=== PATIENT | female | born 1945 | race Caucasian/White ===

== ENCOUNTER → 2017-12-04 10:59 | Outpatient (CLI) | payer MEDICARE, SELFPAY ==
--- NOTE | 2017-12-04 11:03 | MM_ITS ---
MM Dig screening mamm BI w/CAD CAD Screening ORDERING PHYSICIAN : Kaya Lopez PATIENT AGE: 72 years GENDER: Female INDICATION: A routine mammogram. Patient with no hormones no new complaints. Noncontributory family history. COMPARISON: Previous mammograms: November & 2013 TECHNIQUE: Standard CC and MLO images were obtained. R2 CAD reviewed. FINDINGS: Mild to moderate residual glandular tissue bilaterally no dominant mass nor suspicious calcifications RIGHT BREAST:. No significant new areas of concern. . Benign vascular calcifications bilaterally LEFT BREAST:No new areas of significant concern. Small bilobed benign calcification with minimal associated density in region of upper-outer quadrant left breast is a long standing stable feature. IMPRESSION: .... Stable bilateral mammogram. N No significant new findings.. Follow-up in one year BI-RADS Category: 1 Negative RECOMMENDED FOLLOW-UP: 1YR - 1 YEAR FOLLOW-UP (A letter has been sent to the patient regarding results of the study.)
== END ==
PROVIDERS: Family Provider Internal Medicine; PCP Obstetrics & Gynecology Gynecology; Visit Provider Obstetrics & Gynecology Gynecology
DX: Z12.31 Encounter for screening mammogram for malignant neoplasm of breast (principal)
CPT/HCPCS: 77067

== ENCOUNTER → 2019-06-09 10:29 | Outpatient (CLI) | payer MEDICARE, SELFPAY ==
--- NOTE | 2019-06-09 10:33 | MM_ITS ---
PROCEDURE: MM DIG SCREENING MAMM BI W/CAD CLINICAL INDICATION: SCREENING There is no personal or family history of breast cancer COMPARISON: [facility] DIG MAMM-SCREEN [facility] from 06/07/2015 [facility] DIG MAMM-SCREEN [place] W/CAD from 11/28/2016 [facility] MM Dig screening mamm BI w/CAD from 12/04/2017 TECHNIQUE: Standard CC and MLO images were obtained. R2 CAD reviewed. FINDINGS: Moderate diffuse scattered fibroglandular densities are seen throughout both breast and the findings of bilateral and symmetrical. There is mild arterial calcification in each breast. There are few scattered benign-appearing microcalcifications in each breast. There is no suspicious lesion and no suspicious microcalcifications. IMPRESSION: Moderate diffuse breast density with no suspicious lesions seen BI-RAD Category: 2 Benign Finding(s) FOLLOW-UP: 1YR 1 Year Follow-up (A letter has been sent to the patient regarding results of the study.) Dictated by: Dr. Darryl Rust MD 06/10/2019 15:[address] Darryl Rust MD in [place] 06/10/2019 15:03
== END ==
PROVIDERS: Visit Provider Obstetrics & Gynecology Gynecology
DX: Z12.31 Encounter for screening mammogram for malignant neoplasm of breast (principal)
CPT/HCPCS: 77067

== ENCOUNTER → 2020-06-21 10:54 | Outpatient (CLI) | payer MEDICARE, SELFPAY ==
--- NOTE | 2020-06-21 10:58 | MM_ITS ---
PROCEDURE: MM DIG SCREENING MAMM BI W/CAD Referring Doctor: Kaya Lopez Patient Age:74Y CLINICAL INDICATION: SCREENING 74-year-old. No hormones, no new complaints. Noncontributory family history The the the the COMPARISON: MG [facility] DIG MAMM-SCREEN [place] from 05/19/2013 MG [facility] DIG MAMM-SCREEN [place] from 06/02/2014 MG [facility] DIG MAMM-SCREEN [place] from 06/07/2015 MG [facility] MAMM-SCREEN [place] W/CAD from 11/28/2016 MG [facility] MM Dig screening mamm BI w/CAD from 12/04/2017 MG MM DIG SCREENING MAMM BI W/CAD from 06/09/2019 TECHNIQUE: Standard CC and MLO images were obtained. R2 CAD reviewed. Bilateral digital breast tomosynthesis included. Additional nipple profile left MLO view left breast FINDINGS: A nkvk-di-nwknkose residual fibroglandular elements most evident at the central and upper outer quadrant both breast . Similar overall architecture with either breast no suspicious calcification. Arterial vascular calcifications bilaterally Left breast. CAD and visual inspection note a small area of density at the medial left breast on both the CC and cc tomosynthesis views which appears slightly denser than previous studies. However this is less evident on the MLO image sequences.. I doubt this is of significance and most likely accentuated by technique today but since this minimal density has become more evident since prior studies since prior cc views would suggest would suggest patient return for ultrasound left breast of followed by spot cc and MLO views, and full 90 degree view left breast. Right breast: No new areas of concern on the right. No dominant nor suspicious mass.. IMPRESSION: Left breast Small focus density at medial left breast has become slightly more evident on today's CC and cc tomosynthesis view. This may merely be due to differences in technique and overlapping shadows, but would recommend Ultrasound And Additional ViewsLeft Breast to further evaluate Right Breast stable with no significant appearing new findings but findings. Follow-up in 1 year on right BI-RAD Category: 0 Need Additional Imaging Evaluation FOLLOW-UP: IMM Immediate Follow-up Recommended Left breast ultrasound and spot views (A letter has been sent to the patient regarding results of the study.) Dictated by: Perez Singh MD 06/23/2020 12:07 Perez Singh MD in [place] 06/23/2020 12:07
== END ==
PROVIDERS: PCP Internal Medicine; Visit Provider Obstetrics & Gynecology Gynecology
DX: Z12.31 Encounter for screening mammogram for malignant neoplasm of breast (principal)
CPT/HCPCS: 77063; 77067

== ENCOUNTER → 2020-07-05 13:11 | Outpatient (CLI) | payer MEDICARE, SELFPAY ==
--- NOTE | 2020-07-05 13:15 | MM_ITS ---
PROCEDURE: MM DIG MAMM DX UNILAT LT CAD Digital Breast Tomosynthesis Included CLINICAL INDICATION: ABN MAMM COMPARISON: MG [facility] MM Dig screening mamm BI w/CAD from 12/04/2017 MG MM DIG SCREENING MAMM BI W/CAD from 06/09/2019 MG MM DIG SCREENING MAMM BI W/CAD from 06/21/2020 US US BREAST LT COMPLETE from 07/05/2020 TECHNIQUE: Standard CC and MLO images and 3D Tomosynthesis was obtained. R2 CAD reviewed. FINDINGS: Subtle and questionable nodular density near the nipple left breast seen on the recent exam appears to press out on the spot MLO and CC views. Again noted is arterial calcification and a couple of benign-appearing microcalcifications. Ultrasound performed the same date showed a small oval 8 x 7 mm hypoechoic lesion with internal echoes and this likely is a small cyst with internal debris and certainly has no suspicious characteristics. IMPRESSION: Essentially negative problem solving views and recommend the patient continue with yearly screening mammography BI-RAD Category: 1 Negative FOLLOW-UP: 1YR 1 Year Follow-up (A letter has been sent to the patient regarding results of the study.) Dictated by: Dr. Darryl Rust MD 07/07/2020 12:10 Dr. Darryl Rust MD in [place] 07/07/2020 12:10
--- NOTE | 2020-07-05 13:15 | US_ITS ---
PROCEDURE: US BREAST LT COMPLETE CLINICAL INDICATION: ABN MAMM COMPARISON: No exams were available for comparison FINDINGS: Somewhat diffuse heterogenic echogenicity is seen. There is a small oval hypoechoic lesion with well-defined borders and internal echoes at the 3 o'clock position near the nipple measuring 0.7 x 0.4 0.8 cm. This likely is a small complex cyst. There is no definite suspicious abnormality at this location on the mammogram performed the same date. There are normal appearing nodes in the axilla. IMPRESSION: Probable small complex cyst and suggest patient have follow-up ultrasound left breast in 1 year at the time of the yearly screening mammogram. Dictated by: Dr. Darryl Rust MD 07/07/2020 12:13 Dr. Darryl Rust MD in [place] 07/07/2020 12:13
== END ==
PROVIDERS: PCP Internal Medicine; Visit Provider Obstetrics & Gynecology Gynecology
DX: R92.8 Other abnormal and inconclusive findings on diagnostic imaging of breast (principal)
CPT/HCPCS: 76641; 77061; 77065; G0279

== ENCOUNTER → 2022-04-03 08:18 | Outpatient (CLI) | payer MEDICARE, SELFPAY ==
--- NOTE | 2022-04-03 08:22 | MM_ITS ---
PROCEDURE INFORMATION: Exam: MG Bilateral Screening 3D Mammography Exam date and time: 04/03/2022 8:16 AM Age: 76 years old Clinical indication: Screening examination. No family history of breast cancer. TECHNIQUE: Imaging protocol: Bilateral Screening tomosynthesis and 2D mammography including computer-aided detection (CAD) when performed. COMPARISON: 1. MG MM DIG MAMM DX UNILAT LT CAD 07/05/2020 1:21 PM 2. MG MM DIG SCREENING MAMM BI W/CAD 06/21/2020 10:57 AM 3. MG MM DIG SCREENING MAMM BI W/CAD 06/09/2019 10:41 AM 4. MG [facility] MM Dig screening mamm BI w/CAD 12/04/2017 11:18 AM FINDINGS: MAMMOGRAPHY: Breast composition: There are scattered areas of fibroglandular density. Mass: None. Architectural distortion: None. Calcifications: No suspicious calcifications. Asymmetric density: None. Skin thickening: None. Axillary adenopathy: None. IMPRESSION: No mammographic evidence of malignancy. Annual screening is recommended unless otherwise clinically indicated. ASSESSMENT: BI-RADS Category 1: Negative
== END ==
PROVIDERS: PCP Internal Medicine; Visit Provider Obstetrics & Gynecology Gynecology
DX: Z12.31 Encounter for screening mammogram for malignant neoplasm of breast (principal)
CPT/HCPCS: 77063; 77067

== ENCOUNTER → 2023-05-22 10:16 | Outpatient (CLI) | payer MEDICARE, SELFPAY ==
--- NOTE | 2023-05-22 10:20 | MM_ITS ---
PROCEDURE INFORMATION: Exam: MG Bilateral Screening 3D Mammography Exam date and time: 05/22/2023 10:17 AM Age: 77 years old Clinical indication: Screening mammogram TECHNIQUE: Imaging protocol: Bilateral Screening tomosynthesis and 2D mammography including computer-aided detection (CAD) when performed. COMPARISON: 1. MG MM DIG SCREENING MAMM BI W/CAD 04/03/2022 8:16 AM 2. MG MM DIG MAMM DX UNILAT LT CAD 07/05/2020 1:21 PM 3. MG MM DIG SCREENING MAMM BI W/CAD 06/21/2020 10:57 AM 4. MG MM DIG SCREENING MAMM BI W/CAD 06/09/2019 10:41 AM FINDINGS: MAMMOGRAPHY: Breast composition: The breast is heterogeneously dense, which may obscure small masses. Mass: None. Architectural distortion: No new or suspicious architectural distortion. Calcifications: Stable benign-appearing calcifications are present. No new or suspicious cluster of microcalcifications have developed. Asymmetric density: No new or suspicious asymmetric density is present Skin thickening: None. Axillary adenopathy: None. IMPRESSION: No mammographic evidence of malignancy. Recommend annual screening mammography unless otherwise clinically indicated. ASSESSMENT: BI-RADS category 2: Benign
== END ==
PROVIDERS: PCP Internal Medicine; Visit Provider Obstetrics & Gynecology Gynecology
DX: Z12.31 Encounter for screening mammogram for malignant neoplasm of breast (principal)
CPT/HCPCS: 77063; 77067

== ENCOUNTER 2024-01-10 10:39 | Emergency (ER) | payer MEDICARE, SELFPAY ==
[2024-01-10 11:10] VITALS: BP 143/66; PULSE 86; RESP 20; TEMP 36.8; O2SAT 94; BMI 28.8
--- NOTE | 2024-01-10 11:58 | ED_ITS ---
Discharge Plan Disposition Patient Disposition: Home, Self-Care Condition: Good Prescriptions Prescriptions: New ondansetron 4 mg tablet,disintegrating 4 mg PO Q8H 4 Days Qty: 12 0RF No Action atorvastatin 80 mg tablet 80 mg PO DAILY Patient Comments: TAKE 1 TABLET BY MOUTH DAILY trazodone 50 mg tablet 50 mg PO DAILY Patient Comments: TAKE 1 TO 2 TABLETS BY MOUTH EVERY EVENING sennosides-docusate sodium [Stimulant Laxative Plus] 8.6-50 mg tablet 1 tab PO HS Patient Comments: TAKE 1 TO 2 TABLETS BY MOUTH EVERY NIGHT AT BEDTIME amlodipine 5 mg tablet 5 mg PO DAILY Patient Comments: TAKE 1 TABLET BY MOUTH EVERY DAY hydrocodone-acetaminophen 10-325 mg tablet 1 tab PO BID Patient Comments: TAKE 1 TABLET BY MOUTH TWICE DAILY omeprazole 20 mg capsule,delayed release(DR/EC) 20 mg PO DAILY Patient Comments: TAKE 1 CAPSULE BY MOUTH EVERY DAY aspirin 81 mg Tablet,Chewable 81 mg PO DAILY atenolol 50 mg tablet 50 mg PO DAILY Patient Comments: TAKE 1 TABLET BY MOUTH DAILY nitrofurantoin monohyd/m-cryst 100 mg capsule 100 mg PO Q12H Patient Comments: TAKE 1 CAPSULE BY MOUTH EVERY 12 HOURS FOR 10 DAYS WITH FOOD/MEAL Referrals Follow up/Referrals: Jack Francisco [Primary Care Provider] - See instructions Activity Restrictions/Add. Instructions Additional Instructions/Restrictions: Follow up with PCP concerning results from culture. Increase fluids and rest. Call by by 7 pm from Flu/Covid results. If symptoms persist or worsen, return to clinic or PCP. Clinical Impressions Clinical Impression: Upper respiratory infection, viral Instructions Patient Instructions: DI for Urinary Tract Infection (UTI), DI for Viral Upper Respiratory Infection -- Adult Discharge ED Provider: Claudia Deal [facility] General Stated complaint: body aches, headaches, fever Mode of Arrival: Ambulatory Source of Information: Patient Limitations: No Limitations Time Seen by Provider: 01/10/24 11:46 Description of Symptoms (Recalled from Triage Doc. by RN): PATIENT C/O HEADACHE, BODY ACHES, AND COUGH X 4 DAYS HEENT Symptoms (Recalled from RN notes): Yes Resp Symptoms (Recalled from RN notes): Yes Skin Symptoms (Recalled from RN notes): No MS Symptoms (Recalled from RN notes): No Functional Status (Recalled from RN notes): WNL History of Present Illness Provider Complaint: Pt reports that she was seen by her PCP a couple of days ago and was treated with an antibiotic for an UTI. She states that the cultures have not come back but she has continued to feel worse with body aches, fever, headache, and a slight cough. She reports not being able to drink much as she has been nauseated. She wishes to rule out Covid and flu at this time. Related Data Home Medications Medication Instructions Recorded Confirmed amlodipine 5 mg tablet 5 mg PO DAILY 01/10/24 01/10/24 aspirin 81 mg chewable tablet 81 mg PO DAILY 01/10/24 01/10/24 atenolol 50 mg tablet 50 mg PO DAILY 01/10/24 01/10/24 atorvastatin 80 mg tablet 80 mg PO DAILY 01/10/24 01/10/24 hydrocodone 10 mg-acetaminophen 1 tab PO BID 01/10/24 01/10/24 325 mg tablet nitrofurantoin 100 mg PO Q12H 01/10/24 01/10/24 monohydrate/macrocrystals 100 mg capsule omeprazole 20 mg capsule,delayed 20 mg PO DAILY 01/10/24 01/10/24 release sennosides 8.6 mg-docusate sodium 1 tab PO HS 01/10/24 01/10/24 50 mg tablet (Stimulant Laxative Plus) trazodone 50 mg tablet 50 mg PO DAILY 01/10/24 01/10/24 Previous Rx's Medication Instructions Recorded ondansetron 4 mg disintegrating 4 mg PO Q8H 4 days #12 tabs 01/10/24 tablet Allergies Allergy/AdvReac Type Severity Reaction Status Date / Time morphine Allergy Verified 01/10/24 11:26 Sulfa (Sulfonamide Allergy Verified 01/10/24 11:26 Antibiotics) Worker's Comp Is this a Worker's Comp case?: No [facility] Disclaimer: The information contained in this section may have been updated after the meme ent was seen, as this information can be updated by other users. Medical History (Updated 01/10/24 @ 12:02 by Claudia Deal APRN) UTI (urinary tract infection) GERD (gastroesophageal reflux disease) Anxiety History of heart attack Hyperlipidemia Hypertension Surgical History (Updated 01/10/24 @ 11:26 by Shana Gonzalez RN) History of tonsillectomy History of cardiac cath Social History Smoking Status: Never smoker alcohol intake: never current occupational status: previously employed Travel in the last 8 weeks: None ROS Obtained: Yes All systems reviewed & no additional complaints except as documented Constitutional Constitutional: Reports system reviewed and no additional complaints, except as documented, Reports body ache, Reports chills, Reports headache(s) and Reports malaise Eyes Eyes: Reports system reviewed and no additional complaints, except as documented ENT Ears, Nose, Mouth, and Throat: Reports system reviewed and no additional com plaints, except as documented and Reports headache(s) Cardiovascular Cardiovascular: Reports system reviewed and no additional complaints, except as documented Respiratory Respiratory: Reports system reviewed and no additional complaints, except as documented and Reports cough Gastrointestinal Gastrointestingal: Reports system reviewed and no additional complaints, except as documented and nausea Genitourinary Female Genitourinary: Reports system reviewed and no additional complaints, except as documented, Reports dysuria and Reports urinary frequency Musculoskeletal Musculoskeletal: Reports system reviewed and no additional complaints, except as documented Integumentary/Breasts Skin/Breast: Reports system reviewed and no additional complaints, except as documented Neurologic Neurologic: Reports system reviewed and no additional complaints, except as documented and Reports headache(s) Endocrine Endocrine: Reports system reviewed and no additional complaints, except as documented Hematologic/Lymphatic Henatologic/Lymphatic: Reports system reviewed and no additional complaints, except as documented Allergic/Immunologic Allergic/Immunologic: Reports system reviewed and no additional complaints, except as documented Physical Exam General General appearance: alert Comment: ill appearing Head Head exam: atraumatic and normocephalic Eye Eye exam: Present normal appearance ENT ENT exam: Present normal exam, normal oropharynx and mucous membranes moist Expanded ENT Exam Nose exam: Absent sinus tenderness Nasal speculum exam: Bilateral: normal Mouth exam: Present normal external inspection Teeth exam: Present normal inspection Throat exam: Present normal inspection Neck Neck exam: Present normal inspection; Absent lymphadenopathy Chest Chest inspection: Present normal inspection and symmetric chest wall rise Respiratory Respiratory exam: Present normal lung sounds bilaterally Cardiovascular Cardiovascular exam: Present regular rate, normal rhythm and normal heart sounds Abdominal Exam Abdominal exam: Present soft, tenderness and normal bowel sounds Abdominal tenderness: Present epigastrium Extremities Exam Extremities exam: Present normal inspection Back Exam Back exam: Present normal inspection, CVA tenderness (R) and CVA tenderness (L) Neurological Exam Neurological exam: Present alert and oriented X3 Psychiatric Psychiatric exam: Present normal affect and normal mood Skin Skin exam: Present warm, dry and intact Lymphatic Lymphatic Findings: no adenopathy Medical Decision Making Mir Inquiry Pt receiving controlled substance: No Mir was queried for this patient: No Vital Signs: 01/10/24 11:10 Temperature 98.3 F Temperature Source Oral Pulse Rate [Left Brachial] 86 Respiratory Rate 20 Blood Pressure [Left Arm] 143/66 H Blood Pressure Mean [Left Arm] 91 Blood Pressure Source [Left Arm] Automatic Cuff Blood Pressure Position [Left Arm] Sitting 02 Sat by Pulse Oximetry 94 L Oxygen Delivery Method Room Air Medical Decision Narrative: Discussed with pt that a lot of her symptoms could be related to her current UTI and the possibility that the current antibiotic does not work for the bacteria. She is to call this evening and check with her doctor concerning culture results. Pt does not wish to change antibiotics until results of culture are available.
[2024-01-10 12:04] VITALS: BP 143/66; PULSE 86; RESP 20; TEMP 36.8; O2SAT 94
[2024-01-10 12:57] LABS: Coronavirus 19, PCR Not Detected (NotDetected); Influenza A, PCR Not Detected (NotDetected); Influenza B, PCR Not Detected (NotDetected)
== END 2024-01-10 12:07 | disposition home or self-care (01) ==
PROVIDERS: Emergency Provider Nurse Practitioner Family; PCP Internal Medicine
DX: R51.9 Headache, unspecified (principal); R50.9 Fever, unspecified; R05.9 Cough, unspecified; J06.9 Acute upper respiratory infection, unspecified; B34.9 Viral infection, unspecified; R11.0 Nausea
CPT/HCPCS: 87636; 99204; 99212; G0463

== ENCOUNTER 2024-05-26 10:10 | Outpatient (CLI) | payer MEDICARE, SELFPAY ==
--- NOTE | 2024-05-26 10:15 | MM_ITS ---
PROCEDURE INFORMATION: Exam: MG Bilateral Screening 3D Mammography Exam date and time: 05/26/2024 10:15 AM Age: 78 years old Clinical indication: Screening. No family history of breast cancer. TECHNIQUE: Imaging protocol: Bilateral Screening tomosynthesis and 2D mammography including computer-aided detection (CAD) when performed. COMPARISON: 1. MG MM DIG SCREENING MAMM BI W/CAD 05/26/2024 10:15 AM 2. MG MM DIG SCREENING MAMM BI W/CAD 04/03/2022 8:16 AM FINDINGS: MAMMOGRAPHY: Breast composition: The breasts are heterogeneously dense, which may obscure small masses. Mass: None. Architectural distortion: None. Calcifications: No suspicious calcifications. Asymmetric density: None. Skin thickening: None. Axillary adenopathy: None. IMPRESSION: No mammographic evidence of malignancy. Annual screening is recommended unless otherwise clinically indicated. ASSESSMENT: BI-RADS Category 1: Negative.
== END 2024-05-26 23:59 | disposition home or self-care (01) ==
LOC: RAD 10:11
PROVIDERS: PCP Internal Medicine; Visit Provider Obstetrics & Gynecology Gynecology
DX: Z12.31 Encounter for screening mammogram for malignant neoplasm of breast (principal)
CPT/HCPCS: 77063; 77067

== ENCOUNTER 2025-06-08 13:49 | Outpatient (CLI) | payer MEDICARE, SELFPAY ==
--- OUTSIDE RECORDS SUMMARY | 2025-04-27 12:43 | XMS_ITS | Encounter Summary ---
[facility] Organization [facility] Address [address] [place] [address] Care Team Providers Care Mobile Development Manager Name Role Phone Jack Francisco DO Primary Care Provider Reason for Referral * Diagnostic Imaging (Routine) - Closed Specialty Diagnoses / Procedures Referred By Contac t Referred To Contact Diagnoses Palpitations Procedures Adult Transthoracic Echo Complete W/ Cont if Necessary Per Protocol Jack Francisco DO [address] [place] [address] Phone: tel: fax: [address] [phone] Phone: tel: Referral ID Status Reason Start Date Expiration Date Visits Re quested Visits Authorized [id number] Closed 04/07/2025 07/07/2026 1 1 Reason for Visit * Diagnostic Imaging (Routine) - Closed Specialty Diagnoses / Procedures Referred By Contac t Referred To Contact Diagnoses Palpitations Procedures Adult Transthoracic Echo Complete W/ Cont if Necessary Per Protocol Jack Francisco DO [address] [place] [address] Phone: tel: fax: [facility] [address] [place] [address] Phone: tel: Referral ID Status Reason Start Date Expiration Date Visits Re quested Visits Authorized [id number] Closed 04/07/2025 07/07/2026 1 1 Encounter Details Date Type Department Care Team (Late st Contact Info) Description 04/27/2025 1:43 PM EDT - 04/27/2025 11:59 PM EDT Hospital Encounter [facility] [place] [address] [place] [address] Jack Francisco, DO [address] [facility] [address] [place] [address] Palpitations Discharge Disposition: Home or Self Care Social History Tobacco Use Types Packs/Day Years Used Date Smoking Tobacco: Never Smokeless Tobacco: Never Alcohol Use Standard Drinks/Week Comments Yes 1 (1 standard drink = 0.6 oz pur e alcohol) Occasionally AUDIT-C Answer Date Recorded Q1: How often do you have a drink containing alcohol? Never 02/18/2023 Q2: How many drinks containi ng alcohol do you have on a typical day when you are drinking? Patient does not drink Q3: How often do you have si x or more drinks on one occasion? Never 02/18/2023 PHQ-2 Answer Date Recorded Retired Total Score 0 03/24/2021 Exercise Vital Sign Answer Date Recorde d On average, how many days pe r week do you engage in moderate to strenuous exercise (like a brisk walk)? 0 days 02/19/2023 On average, how many minutes do you engage in exercise at this level? 0 min 02/19/2023 Hunger Vital Sign Answer Date Recorded Within the past 12 months, y ou worried that your food would run out before you got the money to buy more. Never true 02/20/20 23 Within the past 12 months, t he food you bought just didn't last and you didn't have money to get more. Never true 02/19/2023 Abuse Screen Answer Date Recorded Feels Unsafe at Home or Work/School no 03/11/2023 Feels Threatened by Someone no 02/14 Does Anyone Try to Keep You From Having Contact with Others or Doing Things Outside Your Home? no 03/11/2023 Physical Signs of Abuse Present no 03/11/2023 Housing Stability Answer Date Recorded Current Living Arrangements home 01/2023 Potentially Unsafe Housing Conditions none 02/19/2023 Disabilities Answer Date Recorded Difficulty Concentrating, Remembering or Making Decisions no 02/18/2023 Difficulty Managing Errands Independently no 02/18/2023 Education Answer Date Recorded Help with school or training? Not on file Preferred Language Austrian 02/19/2023 Comments No Sex and Gender Information Value Date Recorded Sex Assigned at Female 04/23/2025 6:30 PM EDT Legal Sex Female 1:08 PM EDT Gender Identity Not on file Sexual Orientation Not on file documented as of this encounter Last Filed Vital Signs Vital Sign Reading Time Taken Comments Blood Pressure 149/91 04/27/2025 1:44 PM EDT Pulse - - Temperature - - Respiratory Rate - - Oxygen Saturation - - Inhaled Oxygen Concentration - - Weight 68.6 kg (151 lb 3.8 oz) 04/27/2025 1:44 P M EDT Height - - Body Mass Index 29.54 06/25/2024 11:01 AM EST documented in this encounter Medications at Time of Discharge amLODIPine (NORVASC) 5 MG tablet Take 1 tablet by mouth Daily. 90 tablet 3 06/25/2024 aspirin 81 MG EC tablet Take 1 tablet by mouth Daily. Continues per orders atenolol (TENORMIN) 50 MG tablet Take 1 tablet by mouth Daily. 30 tablet 07/29/2019 atorvastatin (LIPITOR) 80 MG tablet Take 1 tablet by mouth Every Night. 90 tablet 3 06/12/2022 hydroCHLOROthiaz karla 25 MG tablet Take 1 tablet by mouth Daily As Needed (edema). 30 tablet 2 07/01/2024 HYDROcodone-acet aminophen (NORCO) 7.5-325 MG per tablet Take 1 tablet by mouth 2 (Two) Times a Day As Needed. 05/17/2022 omeprazole (PriLOSEC) 20 MG capsule Take 1 capsule by mouth Daily. 09/10/2012 traZODone (DESYREL) 50 MG tablet Take 1-2 tablets by mouth At Night As Needed. 06/20/2021 documented as of this encounter Plan of Treatment Upcoming Encounters Date Type Department Care Team (Late st Contact Info) Description 08/10/2025 3:00 PM EST Office Visit [facility] [address] [facility] [address] [place] [address] Sue Garcia PA-C [address] [facility] [address] [place], [place] [id number] 08/18/2025 1:30 PM EST Office Visit [facility] C[facility] [address] [place] [address] Raina Hancock APRN [address] [facility] [address] [place] [address] documented as of this encounter Procedures Procedure Name Priority Date/Time Associated Diagnosis Comments ECHO COMPLETE W/ DOPPLER, COLOR FLOW AND STRAIN Routine 04/27/2025 2:23 PM EDT Palpitations documented in this encounter Results * ECHO COMPLETE W/ DOPPLER, COLOR FLOW AND STRAIN (04/27/2025 2:23 PM EDT) EF(MOD-bp) 69.8 % LV GLOBAL STRAIN -17.1 % LVIDd 3.9 cm LVIDs 2.6 cm IVSd 1.00 cm LVPWd 0.70 cm FS 33.3 % IVS/LVPW 1.43 cm ESV(cubed) 17.6 ml LV Sys Vol (BSA corrected) 15.6 cm2 EDV(cubed) 59.3 ml LV Iglesias Vol (BSA corrected) 46.9 cm2 LV mass(C)d 97.4 grams LVOT area 3.1 cm2 LVOT diam 2.00 cm EDV(MOD-sp2) 79.4 ml EDV(MOD-sp4) 77.7 ml ESV(MOD-sp2) 21.2 ml ESV(MOD-sp4) 25.8 ml SV(MOD-sp2) 58.2 ml SV(MOD-sp4) 51.9 ml SVi(MOD-SP2) 35.1 ml/m2 SVi(MOD-SP4) 31.3 ml/m2 SVi (LVOT) 48.6 ml/m2 EF(MOD-sp2) 73.3 % EF(MOD-sp4) 66.8 % MV E max britton 86.0 cm/sec MV A max britton 95.6 cm/sec MV dec time 0.18 sec MV E/A 0.90 IVRT 95.0 ms LA ESV Index (BP) 33.1 ml/m2 Med Peak E' Britton 5.2 cm/sec Lat Peak E' Britton 8.6 cm/sec TR max britton 241.0 cm/sec Avg E/e' ratio 12.46 SV(LVOT) 80.4 ml RV Base 2.7 cm RV Mid 1.80 cm RV Length 5.1 cm TAPSE (>1.6) 2.9 cm RV S' 13.7 cm/sec LA dimension (2D) 3.8 cm LV V1 max 106.0 cm/sec LV V1 max PG 4.5 mmHg LV V1 mean PG 2.00 mmHg LV V1 VTI 25.6 cm Ao pk britton 127.0 cm/sec Ao max PG 6.5 mmHg Ao mean PG 4.0 mmHg Ao V2 VTI 31.6 cm LISETH(I,D) 2.5 cm2 Dimensionless Index 0.81 (DI) MV max PG 8.8 mmHg MV mean PG 4.0 mmHg MV V2 VTI 50.3 cm MVA(VTI) 1.60 cm2 MV dec slope 477.0 cm/sec2 TR max PG 23.2 mmHg PA V2 max 104.0 cm/sec PA acc time 0.17 sec Ao root diam 2.40 cm RVSP(TR) 26 mmHg RAP systole 3 mmHg Anatomical Region Laterality Modality Ultrasound Narrative 04/27/2025 3:32 PM EDT Left ventricular systolic function is normal. Calculated left ventricular EF = 69.8% Left ventricular diastolic function is consistent with (grade I) impaired relaxation. Calculated right ventricular systolic pressure from tricuspid regurgitation is 26 mmHg. Moderate mitral annular calcification is present. Left Ventricle Left ventricular systolic function is normal. Calculated left ventricular EF = 69.8% Global longitudinal LV strain (GLS) = -17.1%. Normal left ventricular cavity size and wall thickness noted. All left ventricular wall segments contract normally. Left ventricular diastolic function is consistent with (grade I) impaired relaxation. Right Ventricle Normal right ventricular cavity size, wall thickness, systolic function and septal motion noted. Left Atrium Normal left atrial size and volume noted. Right Atrium Normal right atrial cavity size noted. Mitral Valve Moderate mitral annular calcification is present. There is moderate calcification of the mitral valve posterior leaflet(s). Tricuspid Valve Estimated right ventricular systolic pressure from tricuspid regurgitation is normal (<35 mmHg). Calculated right ventricular systolic pressure from tricuspid regurgitation is 26 mmHg. Aortic Valve The aortic valve is abnormal in structure. The aortic valve exhibits sclerosis. There is thickening of the aortic valve. Pulmonic Valve The pulmonic valve is structurally normal with no regurgitation or significant stenosis present. Pericardium The pericardium is normal. There is no evidence of pericardial effusion. . Greater Vessels No dilation of the aortic root is present. Aortic root = 2.40 cm No dilation of the sinuses of Valsalva is present. The inferior vena cava is normally sized. Normal IVC inspiratory collapse of greater than 50% noted. Study Quality The study is technically adequate for diagnosis. Jack Francisco DO CV ECHO ORDERABLES Fin al Result documented in this encounter Visit Diagnoses Diagnosis Palpitations documented in this encounter Care Teams Mobile Development Manager Relationship Specialty Start Date End Date Jack Francisco DO [facility] [address] [address] PCP - General Internal Medicine 10/24/15 documented as of this encounter
--- NOTE | 2025-06-08 14:00 | MM_ITS ---
PROCEDURE INFORMATION: Exam: MG Bilateral Screening 3D Mammography Exam date and time: 06/08/2025 1:59 PM Age: 79 years old Clinical indication: Screening examination TECHNIQUE: Imaging protocol: Bilateral Screening tomosynthesis and 2D mammography including computer-aided detection (CAD) when performed. COMPARISON: 1. MG MM DIG SCREENING MAMM BI W/CAD 05/26/2024 10:15 AM 2. MG MM DIG SCREENING MAMM BI W/CAD 05/22/2023 10:17 AM FINDINGS: MAMMOGRAPHY: Breast composition: The breasts are heterogeneously dense, which may obscure small masses. Mass: No suspicious masses. Architectural distortion: None. Calcifications: No suspicious calcifications. Asymmetric density: None. Skin thickening: None. Axillary adenopathy: None. IMPRESSION: No mammographic evidence of malignancy. Annual screening is recommended unless otherwise clinically indicated. ASSESSMENT: BI-RADS Category 1: Negative.
--- OUTSIDE RECORDS SUMMARY | 2025-06-08 14:05 | XMS_ITS | Encounter Summary ---
[facility] Organization [facility] Address [address] [place] [address] Care Team Providers Care Director Recreation Name Role Phone Jack Francisco DO Primary Care Provider Encounter Details Date Type Department Care Team (Latest Contact Info) Description 04/27/2025 Travel Social History Tobacco Use Types Packs/Day Years [...] or training? Not on file Preferred Language Mongolian 02/19/2023 Comments No Sex and Gender Information Value Date Recorded Sex Assigned at Female 04/23/2025 6:30 PM EDT Legal Sex Female 1:08 PM EDT Gender Identity Not on file Sexual Orientation Not on file documented as of this encounter Plan of Treatment Upcoming Encounters Date Type Department Care Team (Late st Contact Info) Description 08/10/2025 3:00 PM EST Office Visit [facility] GASTROENTEROLOGY [address] [phone] Sue Garcia PA-C [address] [place] [address] 08/18/2025 1:30 PM EST Office Visit [facility] CARDIOLOGY [address] [place] [address] Raina Hancock APRN [address] [facility] [address] [facility] [address] [place], [place] [id number] documented as of this encounter Visit Diagnoses Not on filedocumented in this encounter Care Teams Director Recreation Relationship Specialty Start Date End Date Jack Francisco DO [address] [place] [address] PCP - General Internal Medicine 10/24/15 documented as of this encounter
--- OUTSIDE RECORDS SUMMARY | 2025-06-08 14:05 | XMS_ITS | Clinical Summary ---
Author Organization [facility] Address [address] [place] [address] Care Team Providers Care Men'S Designer Name Role Phone Jack Francisco DO Primary Care Provider Allergies Active Allergy Reactions Criticality Noted Date Comments Sulfamethoxazole-Trimethoprim Hives,Itching Low 04/2021 Latex Itching Low 02/09/2016 Morphine And Codeine Itching Low 12/02/2015 Sulfa Antibiotics Hives Low 06/12/2022 Medications omeprazole (PriLOSEC) 20 MG capsule Take 1 capsule by mouth Daily. 3 Active aspirin 81 MG EC tablet Take 1 tablet by mouth Daily. Continues per orders Active atenolol (TENORMIN) 50 MG tablet Take 1 tablet by mouth Daily. 30 tablet 0 Active traZODone (DESYREL) 50 MG tablet Take 1-2 tablets by mouth At Night As Needed. 1 Active HYDROcodone-laina taminophen (NORCO) 7.5-325 MG per tablet Take 1 tablet by mouth 2 (Two) Times a Day As Needed. 2 Active atorvastatin (LIPITOR) 80 MG tablet Take 1 tablet by mouth Every Night. 90 tablet 3 2 Active amLODIPine (NORVASC) 5 MG tablet Take 1 tablet by mouth Daily. 90 tablet 3 4 Active hydroCHLOROthia zide 25 MG tablet Take 1 tablet by mouth Daily As Needed (edema). 30 tablet 2 4 Active Active Problems Problem Noted Date Diagnosed Date Moderate malnutrition 02/20/2023 Diverticulitis 02/17/2023 Pancreatic lesion 02/17/2023 Rectal mass 02/17/2023 Chronic back pain 02/17/2023 GERD without esophagitis 02/17/2023 NADIA (acute kidney injury) 02/17/2023 ST elevation myocardial infa rction involving right coronary artery 09/05/2021 Overview (09/05/2021): Cardiac catheterization for inferior STEMI (severe one-vessel CAD (RCA). Status post overlapping Xience GUERRERO (4 x 28 mm, 4 x 23 mm). Mild disease of other coronary arteries. 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 Chronic LBP 01/13/2021 Overview (04/15/2021): 2020 Regulatory DX Update DD (diverticular disease) 01/13/2021 Lung mass 01/13/2021 Impaired functional mobility, balance, gait, and endurance 05/27/2017 Herniation of lumbar intervertebral disc 017 Lumbar stenosis with neurogenic claudication Overview (05/01/2017): Added automatically from request for surgery [id number] Spinal stenosis of lumbar re gion with neurogenic claudication L3-4 04/26/2017 Hyperlipidemia LDL goal <70 05/30/2016 Hypertension 02/03/2016 Resolved Problems Problem Noted Date Diagnosed Date Resolved Date STEMI (ST elevation myocardial infarction) 09/05/2021 09/05/2021 Right foot pain 02/09/2021 09/05/2021 Right ankle pain 02/09/2021 09/05/2021 Overview (02/09/2021): Added automatically from request for surgery [id number] Cannot sleep 01/13/2021 09/05/2021 Solitary thyroid nodule 01/13/2021 02/2 07/2021 Wound infection after surger y, initial encounter 06/13/2017 09/05/2021 Postoperative wound infection 06/11/2017 09/05/2021 Overview (06/11/2017): Added automatically from request for surgery [id number] Coronary artery disease invo lving [place] coronary artery of [place] heart with angina pectoris 02/03/2016 10/05/2021 Overview (09/05/2021): Dyspnea/abnormal Cardiolite, October 2012, which was a Lexiscan and showed anterior apical myocardial ischemia, ejection fraction of 83%. Cardiac catheterization, 11/15/2012: 85% mid LAD (3.25 x 16 Xience), 90% OM (2.5 x 12 Xience), normal LVEF. February 2016 cardiac catheterization for abnormal myocardial perfusion study: 50% mid left circumflex (widely patent stents distal). 30% RCA. Widely patent LAD stent. Normal LVEF. Cardiac catheterization for inferior STEMI (severe one-vessel CAD (RCA). Status post overlapping Xience GUERRERO (4 x 28 mm, 4 x 23 mm). Mild disease of other coronary arteries. LVEF 55% Encounters Date Type Department Care Team Description 04/27/2025 1:43 PM EDT - 04/27/2025 11:59 PM EDT Hospital Encounter [facility] [place] [address] [place] [address] Jack Francisco, DO Palpitations Discharge Disposition: Home or Self Care 04/27/2025 Travel from Last 3 Months Immunizations Immunization Administration Dates Next Due COVID-19 (MODERNA) 1st,2nd,3rd Dose Monovalent 0 09/08/2020,08/11/2020 Pneumococcal Polysaccharide (PPSV23) 05/27/2017 Family History Medical History Relation Name Comments Arthritis Mother Mother Heart disease Mother Mother Tuberculosis Mother Mother Diabetes Other spouse Heart disease Other spouse Colon cancer Neg Hx Colon polyps Neg Hx Esophageal cancer Neg Hx Relation Name Status Comments Mother Mother Other spouse Social History Tobacco Use Types Packs/Day Years Used Date Smoking Tobacco: Never Smokeless Tobacco: Never Tobacco Cessation:Counseling Given: Not Answered Alcohol Use Standard Drinks/Week Comments Yes 1 [...] or training? Not on file Preferred Language Icelandic 02/19/2023 Comments No Sex and Gender Information Value Date Recorded Sex Assigned at Female 04/23/2025 6:30 PM EDT Legal Sex Female 1:08 PM EDT Gender Identity Not on file Sexual Orientation Not on file Last Filed Vital Signs Vital Sign Reading Time Taken Comments Blood Pressure 149/91 04/27/2025 1:44 PM EDT Pulse 80 06/25/2024 11:01 AM EST Temperature 36.6 C (97.8 F) 05/16/2023 9:15 AM EDT Respiratory Rate 18 05/16/2023 9:15 AM EDT Oxygen Saturation 90% 06/25/2024 11:01 AM EST Inhaled Oxygen Concentration - - Weight 68.6 kg (151 lb 3.8 oz) 04/27/2025 1:44 P M EDT Height 152.4 cm (5') 06/25/2024 11:01 AM EST Body Mass Index 29.54 06/25/2024 11:01 AM EST Plan of Treatment Upcoming Encounters Date Type Department Care Team (Late st Contact Info) Description 08/10/2025 3:00 PM EST Office Visit [facility] [address] [place] [address] Sue Garcia PA-C [address] [facility] [place] [address] 08/18/2025 1:30 PM EST Office Visit [facility] CARD[facility] [address] [place] [id number] Raina Hancock APRN [address] [place] [address] Health Maintenance Due Date Last Done Comments DXA SCAN 1943 TDAP/TD VACCINES (1 - Tdap) 1962 COLOGUARD 1988 COLON CANCER SCREENING 5 YEA R SIGMOIDOSCOPY [address] CT COLONOGRAPHY 1988 FECAL OCCULT BLOOD TEST 1988 FIT Testing (1 year) 1988 ZOSTER VACCINE (1 of 2) 1993 ANNUAL WELLNESS VISIT 04/26/2017 Pneumococcal Vaccine 50+ (2 of 2 - PCV) 05/27/2018 05/27/2017 RSV Vaccine - Adults (1 - 1- dose 75+ series) 2018 LIPID PANEL 09/05/2022 09/05/2021, 02/15/2016 COVID-19 Vaccine (4 - 2024-2 6 season) 2025 2021, 09/08/2020, 08/11/2020 COLONOSCOPY 04/10/2033 04/10/2023, 04/03/2012 COLORECTAL CANCER SCREENING 04/10/2033 INFLUENZA VACCINE Completed 04/06/2025, , 04/12/2023, Additional history exists Medical Devices Implanted Type Area Remote Inpatient Coder Device Identifier Shelf Expiration Date Model / Serial / Lot Implant Implant Description:Cardiac Stent x 2. Card on chart. Bilateral cataract implants. Duralmatrix Duragen Pls 1x3in 5pk - [id number] Implanted:Qty: 1 on 05/23/2017 by David Johnson MD at [facility] Implant N/A: Epidural Space INTEGRA 08/15/2019 [id number] / / [id number] Sys Sealant Durl Duraseal - [id number] Implanted:Qty: 1 on 05/23/2017 by David Johnson MD at [facility] Implant N/A: Epidural Space [employer] 03/15/2018 [id number] / / [id number] Plt Compr Unicp 2hl 30mm - [id number] Implanted:Qty: 1 on 04/19/2021 by Jesika Paulino MD at [facility] Implant Right: Ankle ROSADO AND NEPHEW [id number] / / Scrw Surfix Ss 3.5x22mm Strl - [id number] Implanted:Qty: 1 on 04/19/2021 by Jesika Paulino MD at [facility] Implant Right: Ankle ROSADO AND NEPHEW [id number] / / Scrw Surfix Ss 3.5x28mm Strl - [id number] Implanted:Qty: 1 on 04/19/2021 by Jesika Paulino MD at [facility] Implant Right: Ankle ROSADO AND NEPHEW [id number] / / Hemost Abs Surgifoam 8x6.25cm 10mm - [id number] Implanted:Qty: 1 on 04/19/2021 by Jesika Paulino MD at [facility] Implant Right: Hip ETHICON DIV OF J AND J 11/18/20241972 / / [id number] Pin Sherri Jenkins/Troc Rnd/End Smoth 9x1/8 - [id number] Implanted:Qty: 3 on 04/19/2021 by Jesika Paulino MD at [facility] Implant Right: Ankle [employer] [id number] / / Scrw Margarita Ful/Thrd 4.5x42mm - [id number] Implanted:Qty: 1 on 04/19/2021 by Jesika Paulino MD at [facility] Implant Right: Ankle DEPUY SYNTHES [id number] / / Scrw Margarita Ful/Thrd 4.5x44mm - [id number] Implanted:Qty: 1 on 04/19/2021 by Jesika Paulino MD at [facility] Implant Right: Ankle DEPUY SYNTHES [id number] / / Scrw Margarita Ful/Thrd 4.5x48mm - [id number] Implanted:Qty: 1 on 04/19/2021 by Jesika Paulino MD at [facility] Implant Right: Ankle DEPUY SYNTHES [id number] / / ScrReceept Margarita 16thrd 6.5x80mm - [id number] Implanted:Qty: 1 on 04/19/2021 by Jesika Paulino MD at [facility] Implant Right: Ankle DEPUY SYNTHES [id number] / / Stnt Cornry Rx Xience/Skypoin t Rapdxng 4x28mm - [id number] Implanted:Qty: 1 on 09/05/2021 by Addi Hughes IV, MD at [facility] [employer]ANCIS[employer] [id number] / / [id number] Stnt Cornry Rx Xience/Skypoin t Rapdxng 4x23mm - [id number] Implanted:Qty: 1 on 09/05/2021 by Addi Hughes IV, MD at [facility] [employer] [id number] / / [id number] Explanted Type Area Remote Inpatient Coder Device Identifier Shelf Expiration Date Model / Serial / Lot Scrw Mairaix Ss 3.5x28mm Strl - [id number] Explanted:Qty: 1 on 04/19/2021 at [facility] Implant Right: Ankle ROSADO AND NEPHEW [id number] / / Procedures Procedure Name Priority Date/Time Associated Diagnosis Comments ECHO COMPLETE W/ DOPPLER, COLOR FLOW AND STRAIN Routine 04/27/2025 2:23 PM EDT Palpitations SCANNED - COLONOSCOPY 04/10/2023 LIPID PANEL STAT 09/05/2021 10:59 AM EST from Last 3 Months or Most Recently Relevant to Health Maintenance Results * ECHO COMPLETE W/ DOPPLER, COLOR [...] The study is technically adequate for diagnosis. aJck Francisco DO CV ECHO ORDERABLES Fin al Result * SCANNED - COLONOSCOPY (04/10/2023) Amos Salas MD CHART REVIEW TABS Final Result * Lipid Panel (09/05/2021 10:59 AM EST) Total Cholesterol 139 0 - 200 mg/dL 09/05/2021 11:26 AM EST [facility] Triglycerides 104 0 - 150 mg/dL 09/05/2021 11:26 AM EST [facility] HDL Cholesterol 47 40 - 60 mg/dL 09/05/2021 11:26 AM EST [facility] LDL Cholesterol 73 0 - 100 mg/dL 09/05/2021 11:26 AM EST [facility] VLDL Cholesterol 19 5 - 40 mg/dL 09/05/2021 11:26 AM EST [facility] LDL/HDL Ratio 1.51 09/05/2021 11:26 AM EST [facility] Blood Line / Unknown 09/05/2021 10 :59 AM EST 09/05/2021 11:00 AM EST [facility] - 09/05/2021 11:26 AM EST Cholesterol Reference Ranges (U.S. Department of Health and Human Services ATP III Classifications) Desirable <200 mg/dL Borderline High 200-239 mg/dL High Risk >240 mg/dL Triglyceride Reference Ranges (U.S. Department of Health and Human Services ATP III Classifications) Normal <150 mg/dL Borderline High 150-199 mg/dL High 200-499 mg/dL Very High >500 mg/dL HDL Reference Ranges (U.S. Department of Health and Human Services ATP III Classifications) Low <40 mg/dl (major risk factor for CHD) High >60 mg/dl ('negative' risk factor for CHD) LDL Reference Ranges (U.S. Department of Health and Human Services ATP III Classifications) Optimal <100 mg/dL Near Optimal 100-129 mg/dL Borderline High 130-159 mg/dL High 160-189 mg/dL Very High >189 mg/dL [facility] Jose Hughes IV, MD LAB BLOOD ORDERA BLES Final Result [facility]
[address] [place] [address], from Last 3 Months or Most Recently Relevant to Health Maintenance Insurance MEDICARE A & B Member Subscriber Plan / Payer (Ef fective 2008-Present) Name:Miguelina Curry Member ID:[id number] Relation to Subscriber:Self Name:Miguelina Curry Subscriber ID:[id number] Payer ID:[id number] Group ID:Not on file Type:Not on file Address: [address] [employer] OPTIONS Advance Directives * CPR (Attempt to Resuscitate) (Latest Code Status on File) Date Activated Date Inactivated Comments 02/17/2023 11:02 PM 02/21/2023 2:58 PM Question Answer Comments Code Status (Patient has no pulse and is not breathing): CPR (Attempt to Resuscitate) Medical Interventions (Patie nt has pulse or is breathing): Full Support Release to patient: Routine Release * CPR (Attempt to Resuscitate) Date Activated Date Inactivated Comments 09/05/2021 11:52 AM 09/06/2021 4:31 PM Question Answer Comments Code Status (Patient has no pulse and is not breathing): CPR (Attempt to Resuscitate) Medical Interventions (Patie nt has pulse or is breathing): Full Support * CPR (Attempt to Resuscitate) Date Activated Date Inactivated Comments 04/19/2021 11:20 AM 04/20/2021 5:07 PM Question Answer Comments Code Status (Patient has no pulse and is not breathing): CPR (Attempt to Resuscitate) Medical Interventions (Patie nt has pulse or is breathing): Full Level Of Support Discussed With: Patient * Full Code Date Activated Date Inactivated Comments 06/13/2017 6:38 PM 06/16/2017 5:14 PM * Full Code Date Activated Date Inactivated Comments 05/23/2017 1:39 PM 05/27/2017 4:17 PM Care Teams Men'S Designer Relationship Specialty Start Date End Date Jack Francisco DO [address] [facility] [address] [place] [address] PCP - General Internal Medicine 10/24/15
--- OUTSIDE RECORDS SUMMARY | 2025-06-08 14:05 | XMS_ITS | Clinical Summary ---
Author Organization [facility] Address [address] [place] [address] Phone Care Team Providers Care Swahili Teacher Name Role Phone Lily SOSA, Shlomo Gaona [phone] [ ] Conditions or Problems Problem Name Problem Code Onset Date Status Entry Date Provider Comment Standard Description Annotate Morbid obesity 237785251 (SNOMED CT) Active Beverley Edelen Morbid obesity Essential hypertension 75723032 (SNOMED CT) Active Beverley Edelen Essential hypertension Proteus infection 762971792 (SNOMED CT) Active Beverley Edelen Proteus infection Cellulitis, back 61670735 (SNOMED CT) Active Beverley Edelen Cellulitis of back, except buttock Infection following a procedure, subsequent encounter T81.4xxD (ICD-10-CM) Active Beverley Edelen Infection following a procedure, subsequent encounter Medications Medication Instructions Start Date Stop Date Generic Name [facility] Provider CEFTRIAXONE SODIUM (IV) SOLR Rocephin 2GM IV Q24hrs INPAT 08/18 CEFTRIAXONE SODIUM SOLR 94810387064 Kathie Gan CEFDINIR 300 MG CAPS Take one (1) tablet by mouth twice a day 08/19 CEFDINIR [id number] Shlomo Bautista MD PERCOCET 7.5-325 MG TABS Take 1 tablet by mouth every six hours as needed 08/19 OXYCODONE-ACETAMINOP HEN 59290800691 Jen Goodell SENNA LAXATIVE 25 MG ORAL TABLET Take by mouth as needed 08/19 SENNOSIDES 89130473901 Jen Bowie SENCANDI LAXATIVE 25 MG ORAL TABLET Take by mouth as needed 08/19 SENNOSIDES 49676061262 Hortencia Baig PRAVACHOL 40 MG ORAL TABLET Take 1 tablet by mouth daily 08/19 PRAVASTATIN SODIUM 59206507937 Hortencia Baig PERCOCET 7.5-325 MG TABS Take 1 tablet by mouth every six hours as needed 08/19 OXYCODONE-ACETAMINOP HEN 34098951835 Hortencia Baig PRILOSEC 20 MG ORAL CAPSULE DELAYED RELEASE Take 1 tablet by mouth daily 08/19 OMEPRAZOLE 81014733518 Hortencia Baig MOBIC 15 MG ORAL TABLET Take 1 tablet by mouth daily 08/19 MELOXICAM 86331215834 Hortencia Baig HYDROCHLOROTHIAZIDE 25 MG TABS Take 1 tablet by mouth daily 08/19 HYDROCHLOROTHIAZIDE 28059564188 Hortencia Baig GABAPENTIN 300 MG CAPS Take one (1) tablet by mouth three times a day 08/19 GABAPENTIN 24932234054 Hortencia Baig NITETIME SLEEP-AID 25 MG ORAL TABLET Take 50mg by mouth at night 08/19 DOXYLAMINE SUCCINATE (SLEEP) 35073800938 Hortencai Baig COLACE 100 MG CAPS Take 1 tablet by mouth daily as needed 08/19 DOCUSATE SODIUM 91596106152 Hortencia Baig BENADRYL SEVERE ALLERGY/SINUS 25-5-325 MG ORAL TABLET Take by mouth every 6 hours as needed 08/19 [id number] PAP 10888601094 Hortencia Baig VALIUM 5 MG TABS Take 1 tablet by mouth daily 08/19 DIAZEPAM 75780068991 Hortencia Baig SANTYL 250 UNIT/GM OINT Apply topically daily 08/19 COLLAGENASE 54776315832 Hortencia Baig TENORMIN 50 MG TABS Take 1 tablet by mouth daily 08/19 ATENOLOL 61782547037 Hortencia Baig ADULT ASPIRIN EC LOW STRENGTH 81 MG ORAL TABLET DELAYED RELEASE Take 1 tablet by mouth daily 08/19 ASPIRIN 19210123651 Hortencia Baig CEFTRIAXONE SODIUM (IV) SOLR Rocephin 2GM IV Q24hrs INPAT 08/18 CEFTRIAXONE SODIUM SOLR 50823357193 Jen Prakashupin Medications Administered No information available. Allergies, Adverse Reactions, Alerts Allergy Name Reaction Description Start Date Severity Statu s Provider MORPHINE itching Moderate Active Hortencia Baig LATEX itching Moderate Active Hortencia Baig Results Date Name Value Unit Range Flag Description Lab Report: VANCOMYCIN, TROU GH VANCOMY CHAL 15.40 ug/mL 10.00-20.0 vanco mycin level, serum, trough Lab Report: WOUND CULTURE [id number] <=238 ug/ml GE use only - for LinkLogic import when terms are not otherwise specified Office Visit: room 2 FALLRSKASSES Yes Fall ris k assessment Office Visit: 12 MEDS REVIEW Done Documenta tion of current medications (procedure) DIET RED HAT LINUX ADMINISTRATOR yes Dietary management education, guidance, and counseling (procedure) ORALTOBACUSE Never Tobacco smoking status SMOK STATUS Never smoker Toba senior account clerk smoking status Plan of Care Type Date Detail Pending order Continue IV anti biotics Pending order New Oral Antibio tic Pending order Stat Weekly Labs Patient education Medications Patient education Ceftriaxone%20 (Injection)%20(Injectable) Procedures No information available. Vital Signs Date Name Value Unit Description BMI (Body Mass Index) 35.81 kg/m2 Bod y Mass Index (Ratio) Body Temperature 97.8 [degF] temperat ure E&M BP Diastolic 72 mm[Hg] blood pressu re, diastolic BP Systolic 124 mm[Hg] blood pressur e, systolic Heart Rate 58 /min pulse rate Height 62 [in_us] height E&M Respiratory Rate 18 /min respirat ory rate E&M Weight Measured 195.8 [lb_av] weight E& M Weight Measured 195.8 [lb_av] weight E& M Immunizations Vaccine Administration Date Standard Description CVX Co de Dose Unspecified Formulation Unspecified Formulation 33 Unknown Advance Directives Directive Description Start Date NO ADVANCE DIRECTIVE IN PLACE
== END 2025-06-08 23:59 | disposition home or self-care (01) ==
LOC: RAD 13:50
PROVIDERS: PCP Internal Medicine; Visit Provider Obstetrics & Gynecology Gynecology
DX: Z12.31 Encounter for screening mammogram for malignant neoplasm of breast (principal); R92.333 Mammographic heterogeneous density, bilateral breasts
CPT/HCPCS: 77063; 77067